=== PATIENT | male | born 1955 | race Caucasian/White ===

== ENCOUNTER 2018-05-21 15:41 | Emergency (ER) | payer BC ==
--- NOTE | 2018-05-21 16:29 | RAD ---
RADIOGRAPH CHEST 1 VIEW: HISTORY: A 62-year-old male with kidney failure and fluid volume overload. FINDINGS: There are no air space densities, pulmonary edema, pneumothorax, or cardiomegaly. The lateral costop hrenic angles are sharp. IMPRESSION: 1. No acute cardiopulmonary findings. 2. Left subclavian dual lead pacemaker. hubert [] POS: [facility]
[2018-05-21 16:49] LABS: #Eosinphils 0.2 thou/uL (0.0-0.7); #Lymphocytes 1.6 thou/uL (1.20-3.40); #Monocytes 0.5 thou/uL (0.11-0.59); #Neutrophils 8.9 thou/uL (1.40-6.50); %Basophils 0.3 % (0.0-1.0); %Eosinophils 1.6 % (0.0-10.0); %Lymphocytes 14.1 % (21.0-51.0); %Monocytes 4.6 % (0.0-10.0); %Neutrophils 79.4 % (42.0-75.0); Hemoglobin 13.6 g/dL (14.0-18.0); Mean Corpuscular HGB CONC 34.4 g/dL (32.0-36.0); Mean Corpuscular Hemoglobin 30.9 pg (27.0-31.0); Mean Platelet Volume 6.8 fL (7.4-10.4); Platelet Count 444 thou/uL (130-400); RBC Distribution Width 11.7 % (11.5-14.5); Red Blood Cell (RBC) Count 4.39 mill/uL (4.70-6.10); White Blood Cell (WBC) Count 11.2 thou/uL (4.8-10.8)
[2018-05-21 17:11] LABS: ALT (SGPT) 15 U/L (8-55); AST (SGOT) 15 U/L (5-34); Albumin 3.7 g/dL (3.5-5.0); Alkaline Phosphatase 190 U/L (40-150); Anion Gap 15 mmol/L (10-20); BUN (Urea Nitrogen) 22 mg/dL (8.4-25.7); Bilirubin, Total 0.2 mg/dL (0.2-1.2); CK (CPK) 160 U/L (30-200); Calc. Creatinine Clearance 0 mL/min (70-130); Calcium 9.4 mg/dL (7.8-10.44); Carbon Dioxide 25 mmol/L (22-29); Chloride 102 mmol/L (98-107); Estimated GFR-MDRD 40; Glucose 447 mg/dL (70-105); Lipase 72 U/L (8-78); Potassium 4.5 mmol/L (3.5-5.1); Protein, Total 6.7 g/dL (6.0-8.3); Sodium 137 mmol/L (136-145)
[2018-05-21 17:13] LABS: CKMB 2.5 ng/mL (0-6.6); Troponin I Less than 0.010 ng/mL (< 0.028)
[2018-05-21 17:47] LABS: Bilirubin Negative (Negative); Blood, Urine Negative (Negative); Clarity CLOUDY (Clear); Glucose, Urine (Dipstick) >=1000 mg/dL (Negative); Leukocyte Small (Negative); Nitrite Positive (Negative); Protein, Urine (Dipstick) Negative (Neg-Trace); Specific Gravity, Urine 1.028 (1.002-1.036); Urobilinogen 0.2 mg/dL (0.2-1.0); pH, Urine 6.5 (5.0-9.0)
[2018-05-21 17:48] LABS: Hyaline Casts/LPF 0-3 HYALINE CAST LPF (0-3 Hyaline); RBC/HPF 0-3 HPF (0-3); Squamous Epithelial None Seen HPF (0-3)
[2018-05-21 17:49] LABS: Yeast-AUWi Flag 266.6 (0-25.0)
[2018-05-21 17:58] LABS: Bacteria/HPF 3+ HPF (None Seen); Yeast-All Forms None Seen HPF (None Seen)
[2018-05-21] MEDS ORDERED: Ciprofloxacin 500 MG TAB ONE (18:29)
--- NOTE | 2018-05-21 19:18 | CT ---
CT ABDOMEN NONCONTRAST CT PELVIS NONCONTRAST: (urolithiasis protocol) DATE: 05/21/2018 HISTORY: A 62-year-old male with hematuria, generalized abdominal pain, and prostate cancer. COMPARISON: None. TECHNIQUE: IV injection of iodinated contrast media: none Oral contrast media: none FINDINGS: Other than for urolithiasis, the lack of IV and oral contrast limits the evaluation. There are bilateral L5 pars interarticularis defects without spondylolisthesis. There is fat strandi ng, representing edema, in the subcutaneous fat posterior to the dorsal lumbar fascia, at the level o f the lower lumbar spine and sacrum. There is an approximately 3.5 x 3.5 x 4.5 cm mass in the left r etroperitoneum, abutting the posterior surface of the left renal upper pole. It has a density of ha roximately 30 HU and is therefore not consistent with a simple cyst. It is surrounded by fat strandi ng and edema. It appears to be a pedunculated mass arising from the posterior cortical surface of th e left renal upper pole. There are a few tiny bilateral renal calculi, on the order of 1 mm in size each. No hydronephrosis bilaterally. There is edema throughout the left perirenal space. No hydron ephrosis. no ureteral calculus or bladder calculus. The prostate gland is enlarged, and it indents and superiorly displaces the bladder base. Diffuse mild mural thickening of the mildly distended uri nary bladder, suggestive of chronic bladder outlet obstruction. No colonic diverticulitis. No small bowel dilatation. No ascites or pneumoperitoneum. No pleural effusion. Within the limitations of the noncontrast scan, no major pathology identified involving the abdominal aorta, the bilateral adre nals, the right kidney, the pancreas, the liver, and the spleen. Normal appendix. The lung bases ar e clear. IMPRESSION: 1. A 4.5 cm mass at the left posterior upper perirenal space, probably arising from the left renal u pper pole cortex. Possibilities include renal cell carcinoma versus hemorrhagic renal cyst. 2. Edema throughout the entire left perirenal space. 3. Minimal bilateral nephrolithiasis, consisting of a few punctate bilateral renal calculi, on the o rder of 1 mm in size each. 4. No obstructive uropathy. 5. Enlarged prostate gland and associated signs of chronic bladder outlet obstruction. 6. Bilateral L5 spondylolysis without spondylolisthesis. 7. Recommend multiphase CT of the abdomen and pelvis with and without contrast (hematuria protocol) for complete evaluation of the hematuria and especially to further evaluate the left perirenal mass. IVAN Palm POS: [facility]
--- NOTE | 2018-05-27 21:00 | EKG ---
Test Reason : Blood Pressure : / mmHG Vent. Rate : 071 BPM Atrial Rate : 071 BPM P-R Int : 000 ms QRS Dur : 100 ms QT Int : 392 ms P-R-T Axes : 000 -08 038 degrees QTc Int : 425 ms Atrial-paced rhythm with prolonged AV conduction Abnormal ECG Confirmed by LONI SON, JOSE ([id number]), editorial assistant COLEMAN MONZON ([id number]) on 05/27/2018 8:59:27 PM Referred By: Confirmed By:JOSE IVEY MD
== END 2018-05-21 19:53 | disposition home or self-care (01) ==
LOC: ERS 15:41
DX: N39.0 Urinary tract infection, site not specified (principal); N28.89 Other specified disorders of kidney and ureter; E11.65 Type 2 diabetes mellitus with hyperglycemia; I25.10 Atherosclerotic heart disease of native coronary artery without angina pectoris; K21.9 Gastro-esophageal reflux disease without esophagitis; E78.5 Hyperlipidemia, unspecified; I10 Essential (primary) hypertension; Z85.46 Personal history of malignant neoplasm of prostate; Z79.82 Long term (current) use of aspirin; Z79.899 Other long term (current) drug therapy; Z79.4 Long term (current) use of insulin
CPT/HCPCS: 71045; 74176; 80053; 81003; 81015; 82010; 82550; 82553; 83690; 83880; 84484; 85025; 87077; 87086; 87186; 93005; 96360; 96361

== ENCOUNTER 2019-06-03 13:13 | Observation (INO) | payer BC ==
[2019-06-03 13:51] LABS: #Eosinphils 0.1 thou/uL (0.0-0.7); #Lymphocytes 1.8 thou/uL (1.20-3.40); #Monocytes 0.9 thou/uL (0.11-0.59); #Neutrophils 8.2 thou/uL (1.40-6.50); %Basophils 0.3 % (0.0-1.0); %Eosinophils 0.6 % (0.0-10.0); %Lymphocytes 16.3 % (21.0-51.0); %Neutrophils 74.8 % (42.0-75.0); Hemoglobin 14.5 g/dL (14.0-18.0); Mean Corpuscular HGB CONC 34.3 g/dL (32.0-36.0); Mean Corpuscular Hemoglobin 30.1 pg (27.0-31.0); Mean Corpuscular Volume 87.7 fL (78.0-98.0); Mean Platelet Volume 8.3 fL (7.4-10.4); Platelet Count 302 thou/uL (130-400); RBC Distribution Width 13.1 % (11.5-14.5); Red Blood Cell (RBC) Count 4.82 mill/uL (4.70-6.10)
--- NOTE | 2019-06-03 14:10 | RAD ---
PA AND LATERAL CHEST: HISTORY: Weakness. Chest pain. COMPARISON: 05/21/2018 FINDINGS: The heart size is normal. A left-sided pacing device remains in place. The lungs are well expanded without lobar consolidation, pneumothoraces, or pleural effusions. There are degenerative changes in the spine. IMPRESSION: No radiographic evidence of an acute cardiopulmonary process. POS: [facility]
[2019-06-03 14:13] LABS: ALT (SGPT) 12 U/L (8-55); AST (SGOT) 18 U/L (5-34); Albumin 4.2 g/dL (3.4-4.8); Alkaline Phosphatase 148 U/L (40-150); Anion Gap 15 mmol/L (10-20); BUN (Urea Nitrogen) 34 mg/dL (8.4-25.7); Bilirubin, Total 0.4 mg/dL (0.2-1.2); CK (CPK) 323 U/L (30-200); Calc. Creatinine Clearance 0 mL/min (70-130); Calcium 10.5 mg/dL (7.8-10.44); Carbon Dioxide 25 mmol/L (23-31); Chloride 99 mmol/L (98-107); Estimated GFR-MDRD 28; Globulin 2.9 g/dL (2.4-3.5); Glucose 155 mg/dL (80-115); Potassium 4.1 mmol/L (3.5-5.1); Protein, Total 7.1 g/dL (5.8-8.1); Sodium 135 mmol/L (136-145)
[2019-06-03] MEDS ORDERED: Aspirin Chewable 81 MG TAB ONE (14:56)
[2019-06-03 15:32] LABS: Bilirubin Negative (Negative); Blood, Urine Trace (Negative); Clarity Turbid (Clear); Glucose, Urine (Dipstick) Greater than 1000 mg/dL (Negative); Leukocyte 500 Leu/uL (Negative); Nitrite 2+ (Negative); Protein, Urine (Dipstick) Negative (Neg-Trace); RBC/HPF 0-3 HPF (0-3); Squamous Epithelial None Seen HPF (0-3); Urobilinogen Normal mg/dL (Less than 2); WBC/HPF Greater than 50 HPF (0-3)
[2019-06-03 15:43] LABS: Bacteria/HPF 2+ HPF (None Seen)
[2019-06-03] MEDS ORDERED: HumaLOG 300 UNITS/3 ML VIAL SC PRN (15:46)
[2019-06-03] MEDS ORDERED: Dextrose 50% Abboject 50 ML SYRINGE SLOW IVP PRN (15:46)
[2019-06-03] MEDS ORDERED: Dextrose 5% in Water 1,000 ML IV PRN (15:46)
[2019-06-03 17:01] LABS: Troponin I 0.012 ng/mL (< 0.028)
[2019-06-03 17:03] VITALS: BMI 35.7
[2019-06-03 20:01] LABS: Troponin I Less than 0.010 ng/mL (< 0.028)
[2019-06-03] MEDS: Heparin 5,000 UNITS/ML VIAL SC SCH (20:50)
[2019-06-03] MEDS ORDERED: Escitalopram Oxalate 20 mg Tablet PO SCH (21:15)
[2019-06-03] MEDS ORDERED: Pregabalin 75 MG CAP PO SCH (21:15)
[2019-06-03] MEDS ORDERED: traZODone HCl 50 MG TAB PO SCH (21:30)
--- NOTE | 2019-06-03 22:08 | HP ---
CHIEF COMPLAINT: Shortness of breath and chest pain. HISTORY OF PRESENT ILLNESS: The patient is a 63-year-old male with a past medical history of CAD, status post stent times x1 in 2013. He also has a history of diabetes, hypertension, prostate cancer, who presented to the hospital with chest pain. The patient states that for the past 3 or 4 days, he has been having worsening chest pressure, has been feeling very fatigued and also some shortness of breath on exertion. He also has complaints of orthopnea for the past 3 or 4 days. The patient denies any fevers or chills. He denies any diaphoresis. He states that normally he has much more energy, however, for the past few days, he has had no energy at all. PAST MEDICAL HISTORY: As of the followin. Diabetes. 2. He has a history of CAD. 3. He has a history of hypertension. 4. He has a history of prostate cancer. 5. He also has a history of CKD stage 2 to 3. 6. Obesity. 7. Obstructive sleep apnea, which he does not use the CPAP. PAST SURGICAL HISTORY: He has had cardiac ablation x3. He also had a pacemaker placement. He has ulnar nerve release. He has had a tonsillectomy, adenoidectomy, bilateral knee, shoulder repair, and cardiac stents. MEDICATIONS: As of the following: He is on; 1. Humulin R 12 units b.i.d. 2. Imdur 60 mg daily. 3. Losartan 100 mg daily. 4. Seroquel 50 mg b.i.d. 5. Lisinopril 10 mg daily. 6. Hydrochlorothiazide 25 mg one p.o. daily. 7. Protonix 40 mg daily. 8. Hydralazine 50 mg t.i.d. 9. Crestor 40 mg daily. ALLERGIES: HE IS ALLERGIC TO CECLOR. FAMILY HISTORY: He has a positive history had a history of diabetes. Sister also had lupus. Dad after complication of AL at the age of 54. Mother had AL at the age of 67. SOCIAL HISTORY: He denies any alcohol use, drug use, or smoking history. He is , lives with his family and is a full code. REVIEW OF SYSTEMS: All negative for the ones mentioned above in the HPI. PHYSICAL EXAMINATION: VITAL SIGNS: Are as of the following; temperature of 98.7, heart rate of 80, blood pressure of 130/60, 98% on room air. GENERAL: He is awake, alert, and oriented x3. Does not appear in any distress. HEENT: Normocephalic, atraumatic. No lymphadenopathy noted. Pupils are equal and reactive to light. CV: S1 and S2 present. No murmurs, rubs, or gallops. LUNGS: Clear to auscultation. No rhonchi or wheezes noted. ABDOMEN: Obese. Bowel sounds are present x2. EXTREMITIES: No edema. Pedal pulses are present x2. NEUROVASCULAR: No focal deficits noted. SKIN: No cuts, lesions, or bruises noted. LABORATORY RESULTS: As of the following; WBCs of 11.0, hemoglobin of 14.5, hematocrit of 42.3, platelets of 302. Chemistry; sodium of 135, potassium of 4.1, BUN of 34, creatinine of 2.41, calcium was 10.5. His CK was 323. His troponin x1 was negative. His BNP was 69. His chest x-ray did not show any acute abnormalities. ASSESSMENT AND PLAN: The patient is a 63-year-old male, who presents to the hospital with chest pain and shortness of breath. 1. Chest pain. This could be cardiac in etiology given his risk factors. We will trend the troponins x3. 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 I will order a stress test as his troponins are negative. Also, I will interrogate his pacemaker since he states that he at times feels some palpitations or feels that his heart is beating really fast. I will interrogate his pacemaker. I will get an echocardiogram since he was supposed to have an echocardiogram with his maintenance of way supervisor . 2. Diabetes. We will continue his home medications and check Accu-Cheks before meals and at bedtime. 3. Hypertension. We will continue his home medications. 4. Coronary artery disease. We will continue his aspirin and a statin. 5. Generalized body aches and pains. The patient has never seen a extract mixer. I will order an MARVA and I have asked the family to follow up with the results after he gets discharged. 6. Prostate cancer. The patient has not really seen an oncologist. He had a workup done and has been seeing a physician at [facility], however, the patient has not followed back up and I did advise strongly that the patient needs to follow up to keep a close eye on his prostate cancer. 7. Deep venous thrombosis prophylaxis. We will put the patient on SCDs. Job ID: [id number]
[2019-06-03] MEDS ORDERED: Atorvastatin Calcium 40 MG TAB PO SCH (22:30)
[2019-06-03] MEDS ORDERED: NIFEdipine XL 30 MG TAB PO SCH (22:30)
[2019-06-03] MEDS ORDERED: Clopidogrel Bisulfate 75 MG TAB PO SCH (22:30)
[2019-06-04] MEDS: HumaLOG 300 UNITS/3 ML VIAL SC PRN ×2 (06:29→12:18)
[2019-06-04] MEDS ORDERED: Diazepam 5 MG TAB PO PRN (07:16)
[2019-06-04] MEDS ORDERED: Insulin Glargine 15 UNITS in Pre-Filled Syringe 1 EACH SC SCH ×2 (07:30→21:00)
[2019-06-04] MEDS ORDERED: Hydrochlorothiazide 25 MG TAB PO SCH (09:00)
[2019-06-04] MEDS ORDERED: Pregabalin 75 MG CAP PO SCH (09:00)
[2019-06-04] MEDS ORDERED: Aspirin 325 mg Enteric Coated Tablet PO SCH (09:00)
[2019-06-04] MEDS ORDERED: ADENOSINE 60 MG/20 ML VIAL ONE (09:07)
[2019-06-04 11:54] LABS: Anion Gap 14 mmol/L (10-20); BUN (Urea Nitrogen) 34 mg/dL (8.4-25.7); Calc. Creatinine Clearance 50 mL/min (70-130); Calcium 10.3 mg/dL (7.8-10.44); Carbon Dioxide 27 mmol/L (23-31); Chloride 96 mmol/L (98-107); Estimated GFR-MDRD 24; Potassium 4.7 mmol/L (3.5-5.1); Sodium 132 mmol/L (136-145)
[2019-06-04 11:58] LABS: Glucose 676 mg/dL (80-115)
--- NOTE | 2019-06-04 12:09 | NM ---
CARDIAC SPECT: CLINICAL HISTORY: 63-year-old male with chest pain, coronary artery disease, GA, stent, ablation, hypertensin, diabetes , and dyslipidemia. TECHNIQUE: A myocardial perfusion scan was performed using the single isotope one day protocol with technetium-9 9m sestamibi. 11 mCi were injected intravenously for the rest exam followed by 32 mCi for the stress exam. Pharmacologic stress with Adenosine was monitored and interpreted by Luisa Chambers NP. FINDINGS: Homogeneous tracer distribution is seen in the myocardial segments on stress and rest images without fixed or reversible defects. GATED SPECT LVEF: 50%. WALL MOTION EXAM: Normal. IMPRESSION: Normal myocardial perfusion scan. POS: [facility]
[2019-06-04] MEDS: Heparin 5,000 UNITS/ML VIAL SC SCH ×3 (12:17→22:13)
[2019-06-04] MEDS: Isosorbide Mononitrate (ER) 30 MG TAB PO SCH (12:19)
[2019-06-04] MEDS: Pregabalin 50 MG CAP PO SCH (12:19)
[2019-06-04] MEDS: Aspirin 81 mg Enteric Coated Tablet PO SCH (12:19)
[2019-06-04] MEDS ORDERED: HumaLOG 300 UNITS/3 ML VIAL SC SCH (17:51)
[2019-06-04] MEDS ORDERED: Atorvastatin Calcium 40 MG TAB PO SCH (21:00)
[2019-06-04] MEDS ORDERED: NIFEdipine XL 30 MG TAB PO SCH (21:00)
[2019-06-04] MEDS ORDERED: Clopidogrel Bisulfate 75 MG TAB PO SCH (21:00)
[2019-06-04] MEDS ORDERED: Escitalopram Oxalate 20 mg Tablet PO SCH (21:00)
[2019-06-05 06:33] LABS: Anion Gap 14 mmol/L (10-20); BUN (Urea Nitrogen) 35 mg/dL (8.4-25.7); Calc. Creatinine Clearance 60 mL/min (70-130); Calcium 9.8 mg/dL (7.8-10.44); Carbon Dioxide 26 mmol/L (23-31); Chloride 97 mmol/L (98-107); Estimated GFR-MDRD 29; Glucose 229 mg/dL (80-115); Potassium 3.9 mmol/L (3.5-5.1); Sodium 133 mmol/L (136-145)
[2019-06-05] MEDS ORDERED: Insulin Glargine 15 UNITS in Pre-Filled Syringe 1 EACH SC SCH (09:00)
[2019-06-05] MEDS: Isosorbide Mononitrate (ER) 30 MG TAB PO SCH (10:39)
[2019-06-05] MEDS: Aspirin 81 mg Enteric Coated Tablet PO SCH (10:39)
[2019-06-05] MEDS: Heparin 5,000 UNITS/ML VIAL SC SCH (10:40)
[2019-06-05] MEDS: Pregabalin 50 MG CAP PO SCH (10:40)
[2019-06-05] MEDS: [UNRECOGNIZED DRUG - OTHER] SC SCH ×2 (10:42→13:35)
[2019-06-05] MEDS: HUMULIN R SC SCH ×2 (10:42→13:35)
--- NOTE | 2019-06-05 12:03 | MRI ---
MRI BRAIN WITHOUT CONTRAST: HISTORY: Weakness. FINDINGS: No restricted diffusion is seen. No evidence of infarct, hemorrhage, midline shift, or abnormal extr aaxial fluid collections are seen. The ventricular size is appropriate and the basilar cisterns stewart nt. The visualized paranasal sinuses and mastoid air cells are well aerated. IMPRESSION: No evidence of acute intracranial process. POS: [facility]
[2019-06-05 12:15] LABS: Hemoglobin A1c 13.3 % (4.0-6.0)
[2019-06-05 12:26] VITALS: BP 156/90; TEMP 98
--- NOTE | 2019-06-05 22:46 | EKG ---
Test Reason : Blood Pressure : / mmHG Vent. Rate : 069 BPM Atrial Rate : 069 BPM P-R Int : 000 ms QRS Dur : 102 ms QT Int : 410 ms P-R-T Axes : 000 005 059 degrees QTc Int : 439 ms Electronic atrial pacemaker Nonspecific ST abnormality Abnormal ECG When compared with ECG of 21-MAY-2018 16:22, No significant change was found Confirmed by Melonie BOWERS ([id number]) on 06/05/2019 10:45:48 PM Referred By: MELIDA Confirmed By:Melonie BOWERS
[2019-06-06 16:43] LABS: ANA Symphony (Qualitative) Negative (Negative); ANA Symphony (Quantitative) 0.1 Ratio (< 0.7 Negative); dsDNA IgG Antibody Less than 0.5 IU/mL (<10 Negative)
== END 2019-06-05 14:49 | disposition home or self-care (01) ==
LOC: ERS 13:13 → INTOOBSV 15:45 → 2SW 15:45
PROVIDERS: ADMIT Internal Medicine; ATTEND Internal Medicine
DX: R07.89 Other chest pain (principal); I25.10 Atherosclerotic heart disease of native coronary artery without angina pectoris; I13.0 Hypertensive heart and chronic kidney disease with heart failure and stage 1 through stage 4 chronic kidney disease, or unspecified chronic kidney disease; E11.22 Type 2 diabetes mellitus with diabetic chronic kidney disease; N18.2 Chronic kidney disease, stage 2 (mild); I50.9 Heart failure, unspecified; E66.9 Obesity, unspecified; M79.10 Myalgia, unspecified site; G47.33 Obstructive sleep apnea (adult) (pediatric); K21.9 Gastro-esophageal reflux disease without esophagitis; I25.2 Old myocardial infarction; E78.5 Hyperlipidemia, unspecified; Z68.36 Body mass index [BMI] 36.0-36.9, adult; Z85.46 Personal history of malignant neoplasm of prostate; Z79.4 Long term (current) use of insulin; Z79.899 Other long term (current) drug therapy; Z88.1 Allergy status to other antibiotic agents; Z88.8 Allergy status to other drugs, medicaments and biological substances; Z79.02 Long term (current) use of antithrombotics/antiplatelets; Z79.82 Long term (current) use of aspirin
CPT/HCPCS: 36415; 36416; 70551; 71046; 78452; 80048; 80053; 81003; 81015; 82550; 83036; 83880; 84484; 85025; 86038; 86225; 93005; 93010; 93017; 93306; 94660; 94760; A9500; G0378; J0153; J1644; J1815

== ENCOUNTER 2020-03-07 01:50 | Observation (INO) | payer BC ==
[2020-03-07 02:40] LABS: #Eosinphils 0.1 thou/uL (0.0-0.7); #Lymphocytes 1.1 thou/uL (1.20-3.40); #Monocytes 0.8 thou/uL (0.11-0.59); #Neutrophils 6.6 thou/uL (1.40-6.50); %Basophils 0.3 % (0.0-1.0); %Eosinophils 1.7 % (0.0-10.0); %Lymphocytes 12.6 % (21.0-51.0); %Neutrophils 76.4 % (42.0-75.0); Hemoglobin 13.5 g/dL (14.0-18.0); Mean Corpuscular HGB CONC 32.5 g/dL (32.0-36.0); Mean Corpuscular Hemoglobin 29.9 pg (27.0-31.0); Mean Corpuscular Volume 92.1 fL (78.0-98.0); Mean Platelet Volume 9.3 fL (7.4-10.4); Platelet Count 186 thou/uL (130-400); RBC Distribution Width 12.9 % (11.5-14.5); Red Blood Cell (RBC) Count 4.51 mill/uL (4.70-6.10); White Blood Cell (WBC) Count 8.7 thou/uL (4.8-10.8)
[2020-03-07] MEDS ORDERED: Lidocaine 2% 11 ML SYR TOP SCH (02:45)
[2020-03-07 02:46] LABS: INR-International Normal Ratio 0.9; PTT 25.2 SEC (22.9-36.1); Prothrombin Time 12.3 sec (12.0-14.7)
[2020-03-07 04:08] LABS: Albumin 3.8 g/dL (3.4-4.8)
[2020-03-07 04:09] LABS: Chloride 99 mmol/L (98-107); Sodium 135 mmol/L (136-145)
[2020-03-07 04:10] LABS: Glucose 392 mg/dL (80-115)
[2020-03-07 04:11] LABS: Globulin 2.3 g/dL (2.4-3.5); Protein, Total 6.1 g/dL (5.8-8.1)
[2020-03-07 04:12] LABS: Anion Gap 11 mmol/L (10-20); Bilirubin, Total 0.4 mg/dL (0.2-1.2); Carbon Dioxide 30 mmol/L (23-31)
[2020-03-07 04:13] LABS: Alkaline Phosphatase 215 U/L (40-110)
[2020-03-07 04:14] LABS: Calc. Creatinine Clearance 0 mL/min (70-130); Estimated GFR-MDRD 27
[2020-03-07 04:15] LABS: BUN (Urea Nitrogen) 26 mg/dL (8.4-25.7)
[2020-03-07 04:16] LABS: ALT (SGPT) 19 U/L (8-55); AST (SGOT) 18 U/L (5-34)
--- NOTE | 2020-03-07 05:33 | PDOC.FPRHP ---
- History of Present Illness Chief Complaint: hematuria History of Present Illness: Patient is a 64M with PMHx of prostate cancer, CAD, IDDM2, GERD, HLD, HTN, CKD, CHF, Hx of LA, overflow incontinence, hx of afib that presents with hematuria. Patient reports that he had an appointment with Dr. Mariscal 03/06 where he had an US to evaluate his bladder for overflow incontinence and his hx of intermittent hematuria throughout the last several years. After the US Dr. Bonilla performed a cystoscopy and placed a 2-way-slade catheter. As the procedure was impromptu, the patient did not stop taking his plavix before the procedure. He reports that since the procedure he has noted hematuria and clotting in his slade and decided to come in. Patient has a hx of prostate cancer diagnosed 2-3 years ago. He has had a prostate bx by Dr. Mariscal and the patient was then encouraged to go to [place], who then directed him to MD George for management of his prostate cancer. MD George reportedly wanted to do a more invasive procedure, but due to his co- morbidities they are watching/waiting. They also encouraged him to get a PET scan, but due to his CKD (followed by Dr. Monge), he has not had this done. The patient had his 2-way-slade removed and a 3-way-slade inserted in the ED. Per ED report, Dr. Bonilla was contacted and he encouraged the patient to be admitted, his plavix held, and he will see him today. PCP: [facility] ED Course: lidocaine (topical) + slade replacement - Allergies/Adverse Reactions Allergies Allergy/AdvReac Type Severity Reaction Status Date / Time cefaclor [From Ceclor] Allergy Unknown Verified 04/11/16 01:00 quetiapine Allergy Verified 06/03/19 17:25 - Home Medications Medication Instructions Recorded Confirmed Type Hydrochlorothiazide 12.5 mg PO DAILY 06/19/13 06/03/19 History Diazepam 10 mg PO BID PRN 09/06/13 06/03/19 History Acetaminophen With Codeine 1 - 2 tablet PO Q4HR PRN 06/03/19 06/03/19 History [Tylenol with Codeine #3] Aspirin [Ecotrin Low Strength] 81 mg PO DAILY 06/03/19 06/03/19 History Atorvastatin Calcium [Lipitor] 40 mg PO HS 06/03/19 06/03/19 History Clopidogrel Bisulfate [Clopidogrel] 75 mg PO HS 06/03/19 06/03/19 History Escitalopram Oxalate [Lexapro] 20 mg PO HS 06/03/19 06/03/19 History Glucagon 1 mg IM ONE PRN 06/03/19 06/03/19 History Isosorbide Mononitrate [Isosorbide 30 mg PO DAILY 06/03/19 06/03/19 History Mononitrate ER] NIFEdipine [Nifedipine ER] 15 mg PO HS 06/03/19 06/03/19 History Pregabalin [Lyrica] 100 mg PO DAILY 06/03/19 06/03/19 History Pregabalin [Lyrica] 300 mg PO HS 06/03/19 06/03/19 History Syringe,Insul U-500,Ndl,0.5ML 55 units SC TID-WM 06/03/19 06/03/19 History [Insulin Syringe U-500] hydrOXYzine [Atarax] 25 mg PO TID PRN 06/03/19 06/03/19 History traMADol HCl [Tramadol HCl] 1 - 2 tab PO Q6HR PRN 06/03/19 06/03/19 History traZODone HCl [Trazodone HCl] 200 mg PO HS 06/03/19 06/03/19 History - History PMHx: prostate cancer, CAD, IDDM2, GERD, HLD, HTN, CKD, CHF, Hx of LA, overflow incontinence, hx of atrial fibrillation PSHx: tonsillectomy, adenoidectomy, ulnar nerve sx, bilateral knee sx, bilateral shoulder sx, pacemaker and 1 stent placed (2012) after his LA, cardiac ablation (5-6x) for atrial fibrillation FHx: non-contributory Social: denies smoking hx, denies alcohol use, denies drug use - Review of Systems General: denies: fever/chills, weight/appetite/sleep changes Eyes: denies: eye pain, vision changes ENT: denies: nasal congestion, rhinorrhea Respiratory: denies: cough, congestion Cardiovascular: reports: edema (1+). denies: palpitation Gastrointestinal: denies: nausea, vomiting, abdominal pain Genitourinary: reports: incontinence (overflow), other (hematuria) Skin: denies: lesions, jaundice Musculoskeletal: denies: tenderness, stiffness Neurological: denies: syncope, seizure Psychological: denies: anxiety, depression - Vital signs BP: [166/74] HR: [62] RR: [15] Tmax: [98.6F] Pox: [96]% on [RA] Wt: [127kg] - Physical Exam Constitutional: NAD, awake, alert and oriented HEENT: normocephalic and atraumatic, MMM Neck: supple, FROM Chest: no-tender to palpation, no lesions Heart: RRR, no murmurs/rubs/gallops, other (trace bilateral lower extremity edema) Lungs: CTAB, no respiratory distress Abdomen: soft, non-tender, bowel sounds present, other (mild distention) Musculoskeletal: normal tone, ROM grossly normal Neurological: no focal deficit Skin: no rash/lesions, capillary refill <2 seconds Heme/Lymphatic: no purpura, other (levon blood from slade catheter) Psychiatric: normal mood and affect, good judgment and insight FMR H&P: Results - Labs Result Diagrams: 03/07/20 02:33 03/07/20 03:43 Lab results: WBC 8.7 thou/uL (4.8-10.8) 03/07/20 02:33 Hgb 13.5 g/dL (14.0-18.0) L 03/07/20 02:33 Hct 41.6 % (42.0-52.0) L 03/07/20 02:33 MCV 92.1 fL (78.0-98.0) 03/07/20 02:33 Plt Count 186 thou/uL (130-400) 03/07/20 02:33 Neutrophils % 76.4 % (42.0-75.0) H 03/07/20 02:33 Sodium 135 mmol/L (136-145) L 03/07/20 03:43 Potassium 5.0 mmol/L (3.5-5.1) 03/07/20 03:43 Chloride 99 mmol/L (98-107) 03/07/20 03:43 Carbon Dioxide 30 mmol/L (23-31) 03/07/20 03:43 BUN 26 mg/dL (8.4-25.7) H 03/07/20 03:43 Creatinine 2.47 mg/dL (0.7-1.3) H 03/07/20 03:43 Glucose 392 mg/dL (80-115) H 03/07/20 03:43 Calcium 9.0 mg/dL (7.8-10.44) 03/07/20 03:43 Total Bilirubin 0.4 mg/dL (0.2-1.2) 03/07/20 03:43 AST 18 U/L (5-34) 03/07/20 03:43 ALT 19 U/L (8-55) 03/07/20 03:43 Alkaline Phosphatase 215 U/L (40-110) H 03/07/20 03:43 Serum Total Protein 6.1 g/dL (5.8-8.1) 03/07/20 03:43 Albumin 3.8 g/dL (3.4-4.8) 03/07/20 03:43 FMR H&P: A/P - Problem List (1) Slade catheter problem Current Visit: Yes Status: Acute Code(s): T83.9XXA - UNSP COMPLICATION OF GENITOURINARY PROSTH DEV/GRFT, INIT (2) Hematuria Current Visit: Yes Status: Acute Code(s): R31.9 - HEMATURIA, UNSPECIFIED (3) Prostate cancer Current Visit: Yes Status: Acute Code(s): C61 - MALIGNANT NEOPLASM OF PROSTATE (4) HTN (hypertension) Current Visit: Yes Status: Acute Code(s): I10 - ESSENTIAL (PRIMARY) HYPERTENSION (5) HLD (hyperlipidemia) Current Visit: Yes Status: Acute Code(s): E78.5 - HYPERLIPIDEMIA, UNSPECIFIED (6) GERD (gastroesophageal reflux disease) Current Visit: Yes Status: Acute Code(s): K21.9 - GASTRO-ESOPHAGEAL REFLUX DISEASE WITHOUT ESOPHAGITIS (7) CKD (chronic kidney disease) Current Visit: Yes Status: Acute Code(s): N18.9 - CHRONIC KIDNEY DISEASE, UNSPECIFIED (8) CHF (congestive heart failure) Current Visit: Yes Status: Acute Code(s): I50.9 - HEART FAILURE, UNSPECIFIED (9) CAD (coronary artery disease) Current Visit: Yes Status: Acute Code(s): I25.10 - ATHSCL HEART DISEASE OF [place] CORONARY ARTERY W/O ANG PCTRS (10) Insulin dependent diabetes mellitus Current Visit: Yes Status: Acute Code(s): GSI9958 - (11) Overflow incontinence Current Visit: Yes Status: Acute Code(s): N39.490 - OVERFLOW INCONTINENCE - Plan Patient is a 64M with PMHx of prostate cancer, CAD, IDDM2, GERD, HLD, HTN, CKD, CHF, Hx of LA, hx of afib, overflow incontinence that is admitted for: #Hematuria 2/2 procedure, slade catheter clotting #Overflow incontinence -3-way-slade catheter in place from the ED -will continue slade flushes -Dr. Mariscal consulted from the ED, appreciate recs -H/H stable at this time -will hold plavix at this time #Hx of prostate cancer -has had prostate bx -under care of MD George -alk phos elevated at 215, concern for possible bone mets -patient not advised to have PET due to CKD, not advised to have procedure (TURP ?) due to co-morbidities -can consider bone scan #IDDM2 -ISS -ACHS accuchecks -continue home meds #HTN -continue home meds #HLD -continue home meds #CKD stage 4 -stable -renally does medications #CHF -uncertain type -echo 05/2019: EF 55-60% -continue home meds -does not appear fluid overloaded on exam #Hx of LA #CAD -will hold plavix for procedure #GERD -continue home meds Diet: NPO for possible procedure DVTppx: SCDs due to hematuria Dispo: medical obs for post-op hematuria and slade-catheter complications; Dr. Mariscal consulted, appreciate recs Code: Full PCP: [facility] FMR H&P: Upper Level - Pertinent history 64 year old male presents with post-procedure hematuria. He was seen by Dr. Mariscal and had a voiding trial done for urinary urgency and bladder distention/ overflow. That same morning, he had a cystoscopy done and subsequently had a slade catheter placed. As the procedure was unplanned, he did not stop his plavix prior to the visit and almost immediately after placement of slade catheter had bleeding and clotting. He states that throughout the day, the clotting of slade catheter became more problematic and urine was backing up. He also endorses some dizziness. In ED, new slade catheter was placed and attempts were made at flushing without much success. Dr. Mariscal was called and asked that patient be admitted with orders to hold ASA and plavix. - Pertinent findings General: Alert and oriented x3. No acute distress. HEENT: MMM. Card: RRR, no murmur Resp: CTA bilaterally, no acute respiratory distress Abdom: Mildly distended, soft, bowel sounds present, non-tender Ext: Trace bilateral lower extremity edema, palpable pulses - Plan Date/Time: 03/07/20525 I, Nichole Del Toro, have evaluated this patient and agree with findings/plan as outlined by internet sales associate resident. Pertinent changes/additions are listed here. Post-procedure hematuria - Patient s/p slade catheter placement after cystoscopy - Patient did not stop plavix due to impromptu nature of procedure - Dr. Mariscal consulted from ED; recommended admission and will follow up this AM - Hold plavix and ASA Hx of prostate cancer - Has had prostate bx - Has been seen by MD George, but no surgical procedures have been performed due to comorbidities - Alk phos elevated at 215, concern for possible bone mets, recommend possible bone scan during admission as this will not affect his kidney function - Patient not advised to have PET due to CKD, not advised to have procedure ( TURP?) due to co-morbidities - Can consider bone scan IDDM2 - ISS - ACHS accuchecks - Continue home meds HTN - Continue home meds HLD - Continue home meds CKD stage 4 - Stable - Renally does medications CHF - Uncertain type - Echo 05/2019: EF 55-60% - Continue home meds - Does not appear fluid overloaded on exam CAD w/ history of LA - Will hold plavix and ASA due to bleeding GERD - Continue home meds Diet: NPO for possible procedure DVT ppx: SCDs Code status: Full Dispo: Obs on medical unit. Anticipate LOS <48 hours.
[2020-03-07] MEDS ORDERED: HumaLOG 300 UNITS/3 ML VIAL SC PRN (06:15)
[2020-03-07] MEDS ORDERED: Dextrose 5% in Water 1,000 ML IV PRN (06:15)
[2020-03-07] MEDS ORDERED: Insulin Regular 300 UNITS/3 ML VIAL SC PRN (06:15)
[2020-03-07] MEDS ORDERED: Dextrose 50% Abboject 50 ML SYRINGE SLOW IVP PRN (06:15)
[2020-03-07] MEDS ORDERED: Ondansetron ODT 4 MG TAB PO PRN (06:15)
--- NOTE | 2020-03-07 06:21 | CON ---
DATE OF CONSULTATION: 03/07/2020 HISTORY OF PRESENT ILLNESS: This is a 64-year-old white male I saw yesterday in my office. I have seen him for the second time in the last couple of weeks. I had seen him previously for an elevated PSA and he had a prostate biopsy and ultrasound done. In 2017, he had one area of a [place] 3 + 3, 20% of one core and he has been on active surveillance, although basically he has just not been seen by a urologist since that time. His PSA was between 9 and 10 and the last PSA as 2018 was I think around 9 also. His digital rectal exam reveals very enlarged prostate and his prostate was well over 100 g at the time of his biopsy. I repeated a PSA on him through my office that is still pending. I saw him because he told me he had urinated some blood occasionally in the past. We did office cysto on him yesterday and office cysto showed that his bladder was distended at least a L of urine in the bladder. There was no evidence of bladder cancer. There is a very large prostate with some intravesical growth. His creatinine has been mildly elevated. He sees Dr. Monge and was thought to be due to his hypertension, vascular disease, and diabetes. There may also be somewhat due to a bladder outlet obstruction. He is a large gentleman. 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 His creatinine here is currently 2.4. I think this is probably around where he often runs, although it may be up a little bit. He does have the PSA which is pending. He does have an alkaline phosphatase that is elevated, not sure the significance of that. We will see what his PSA is as it returns from my office as that PSA was done without a catheter in. His hemoglobin currently is 13.5. His platelet count is 186, and his coags were normal. I did place a Collins catheter, an 18-Sinhala today. He did have some hematuria and has persisted through the day. His called me a little after midnight stating the urine was very, very bloody. She did not think it was draining well that is why the ER. The nurses placed a 24-Sinhala blue 3-way catheter and hand irrigated clots and put him on CBI. When I called to check on him, the nurses said his urine was clear and that they are going to keep him off the CBI and see how he did. I came in to see him around 5 this morning and the urine was still bloody and irrigated out more clots and we will continue on bladder irrigation. He will need to be admitted by the hospitalist service. I think I have irrigated him free of clots. His urine is still pink tinged, so his bladder is still oozing from being decompressed or he is having just some prostatic bleeding. Because of his vascular disease, he does take Plavix. His abdomen is obese, but nontender. The penis is circumcised. No lesion. Testicles are descended without mass or tenderness. I did not repeat a rectal exam. He did not have any significant lower extremity edema. His urine is now very light pink on [id number] CBI rate. At this point, we will need to have the catheter left in for probably 7 to 10 days and we will do a cystometrogram in the office. This has already been set up. He would need to be in the hospital until his urine clears. I would think that this would clear up relatively quickly for him. There is a decent chance he is going to need a TURP of the prostate done. He is not a candidate for radical prostatectomy because of his health issues. He was already seen in [place] to consider that, but they did not think he was a good candidate at all, so probably if he was going to be treated, it would be with radiation, but he may stay on active surveillance, but clearly if his bladder works on a cystometrogram, he probably will need a TUR of the prostate, so that he can start to urinate normally. For this to be done, he will probably need to be off the Plavix and with the bleeding that he is having, it would be nice if he could be off the Plavix, so if we could get Dr. Lyons to see him while he is in the hospital to give his thoughts on what to do about taking him off his Plavix and whether that was felt to be safe and also to get his input in terms of could he tolerate an hour and a half of an anesthetic for TURP in the next 2 to 3 weeks. I do not think he has a urinary tract infection. The culture through the office was negative. I placed him on some Macrobid 100 p.o. a day. This Collins catheter was in to try to keep his urine clear in preparation for the cystometrogram. As mentioned, his hemoglobin actually looks fine, so I really do not think he has had significant loss of blood. His hemoglobin is 13.5. Hopefully, his urine will clear in the next 24 to 36 hours and leave the catheter in until a cystometrogram. Job ID: [id number]
[2020-03-07] MEDS ORDERED: Diazepam 5 MG TAB PO PRN (06:46)
[2020-03-07] MEDS ORDERED: hydrOXYzine 25 MG TAB PO PRN (06:46)
[2020-03-07] MEDS ORDERED: Acetaminophen/Codeine 30-300mg Tablet PO PRN (06:46)
[2020-03-07] MEDS ORDERED: traMADol HCl 50 MG TAB PO PRN (06:54)
[2020-03-07] MEDS ORDERED: cloNIDine 0.1 MG TAB PO PRN (06:54)
[2020-03-07] MEDS ORDERED: Nitroglycerin 4.9 GM Bottle SL PRN (06:54)
--- NOTE | 2020-03-07 07:04 | PDOC.FM ---
- Subjective Subjective: NAEO. Hematuria improved this AM with CBI. Patient has no complaints. - Objective MAR Reviewed: Yes Vital Signs & Weight: Vital Signs (12 hours) Temp Pulse Resp BP Pulse Ox 03/07/20 06:15 98.2 F 60 18 184/83 H 96 I&O: 03/06/20 03/07/20 03/08/20 06:59 06:59 06:59 Output Total 1700 Balance -1700 Result Diagrams: 03/07/20 02:33 03/07/20 03:43 Phys Exam - Physical Examination Constitutional: NAD HEENT: moist MMs Neck: supple, full ROM Respiratory: no wheezing, no rales, no rhonchi, clear to auscultation bilateral Cardiovascular: RRR, no significant murmur Gastrointestinal: soft obese Neurological: non-focal, moves all 4 limbs Psychiatric: normal affect, A&O x 3 Skin: no rash, normal turgor Dx/Plan (1) Hematuria Code(s): R31.9 - HEMATURIA, UNSPECIFIED Status: Acute (2) Slade catheter problem Code(s): T83.9XXA - UNSP COMPLICATION OF GENITOURINARY PROSTH DEV/GRFT, INIT Status: Acute (3) Prostate cancer Code(s): C61 - MALIGNANT NEOPLASM OF PROSTATE Status: Chronic (4) Anxiety Code(s): F41.9 - ANXIETY DISORDER, UNSPECIFIED Status: Chronic (5) Chronic pain Code(s): G89.29 - OTHER CHRONIC PAIN Status: Chronic (6) CAD (coronary artery disease) Code(s): I25.10 - ATHSCL HEART DISEASE OF [place] CORONARY ARTERY W/O ANG PCTRS Status: Chronic (7) CHF (congestive heart failure) Code(s): I50.9 - HEART FAILURE, UNSPECIFIED Status: Chronic (8) CKD (chronic kidney disease) Code(s): N18.9 - CHRONIC KIDNEY DISEASE, UNSPECIFIED Status: Chronic Qualifiers: Chronic kidney disease stage: stage 4 (severe) Qualified Code(s): N18.4 - Chronic kidney disease, stage 4 (severe) (9) GERD (gastroesophageal reflux disease) Code(s): K21.9 - GASTRO-ESOPHAGEAL REFLUX DISEASE WITHOUT ESOPHAGITIS Status: Chronic (10) HLD (hyperlipidemia) Code(s): E78.5 - HYPERLIPIDEMIA, UNSPECIFIED Status: Chronic (11) HTN (hypertension) Code(s): I10 - ESSENTIAL (PRIMARY) HYPERTENSION Status: Chronic Qualifiers: Hypertension type: essential hypertension Qualified Code(s): I10 - Essential (primary) hypertension (12) Insulin dependent diabetes mellitus Code(s): CYE8794 - Status: Chronic (13) Overflow incontinence Code(s): N39.490 - OVERFLOW INCONTINENCE Status: Chronic - Plan Plan: Patient is a 64M with PMHx of prostate cancer, CAD, IDDM2, HLD, HTN, CKD, CHF, Hx of [place], hx of afib, overflow incontinence that is admitted for: #Hematuria 2/2 procedure, slade catheter clotting #Overflow incontinence -3-way-slade catheter in place from the ED -will continue slade flushes -Dr. Mariscal consulted from the ED, appreciate recs -H/H stable at this time -will hold plavix at this time #Hx of prostate cancer -has had prostate bx -under care of MD George -alk phos elevated at 215, concern for possible bone mets -patient not advised to have PET due to CKD, not advised to have procedure TURP due to comorbidities -can consider bone scan #IDDM2 -Resume home meal SSI with severe SSI while inpatient. -ACHS accuchecks & hypoglycemia protocol -A1c 10.8. Per was 14 so improved. Will start long-acting insulin regimen today. #HTN -continue home meds #HLD -continue home meds #CKD stage 4 -stable -renally does medications #HFpEF, not in acute exacerbation -echo 05/2019: EF 55-60% -continue home meds -QD weights, strict I&Os & 2L fluid restrictions #Hx of [place] 2/2 CAD -will hold ASA & plavix for procedure & 2/2 hematuria -Per patient last cardiac stress test was ~3 months ago & was WNLs. #Hx afib -holding plavix & ASA, s/p ablation so not on rate controlling meds #overflow incontinence -Per Urology's note most likely 2/2 BPH, slade in place currently. Strict I&Os while inpatient. Diet: CC, HH, Low Na, 2L fluid restriction VTE PPX: SCDs due to hematuria GI PPX: None Dispo: Will continue monitoring for resolution of hematuria on medical floor & consult Dr. Lyons for cardiac clearance for future OP procedure per patient's Urologist, Dr. Mariscal. Code: Full PCP: [facility] Addendum - Attending - Attending Attestation Date/Time: 03/07/20 1033 I personally evaluated the patient and discussed the management with Dr. Lanza I agree with the History, Examination, Assessment and Plan documented above with any addition or exceptions noted below. Patient admitted for evaluation of hematuria. Currently with 3 way catheter, filling with blood when irrigation is held. Dr Lyons stopped by this AM, ok to hold anticoagulation, Cardiology and Urology will conference on surgery timing for TURP. Elevated ALP, will consider bone scan pending renal function, will reach out to MD George.
[2020-03-07 07:32] LABS: Hemoglobin A1c 10.8 % (4.0-6.0)
[2020-03-07 07:49] VITALS: BMI 39.2
[2020-03-07] MEDS ORDERED: Insulin Glargine 25 UNITS in Pre-Filled Syringe 1 EACH SC SCH (09:00)
[2020-03-07] MEDS ORDERED: Pregabalin 50 MG CAP PO SCH ×2 (09:00→21:00)
[2020-03-07] MEDS ORDERED: Furosemide 40 MG/4 ML VIAL SLOW IVP SCH (09:00)
[2020-03-07] MEDS ORDERED: Lisinopril 20 MG TAB PO SCH (09:00)
[2020-03-07] MEDS ORDERED: hydrALAZINE 10 MG TAB PO SCH (09:00)
[2020-03-07] MEDS ORDERED: Insulin Regular 300 UNITS/3 ML VIAL SC SCH (09:00)
--- NOTE | 2020-03-07 09:31 | CON ---
DATE OF CONSULTATION: 03/07/2020 REASON FOR CONSULTATION: Preoperative evaluation. HISTORY OF PRESENT ILLNESS: Mr. Daniel Jain is a pleasant 64-year-old gentleman with history of coronary artery disease and history of prostate cancer with urinary retention, admitted to the hospital with gross hematuria. Mr. Jain has been having difficulty with urinary retention and underwent cystoscopy. Later, he developed severe gross hematuria. He had a catheter placed again and he is being flushed with fluid. The bleeding is markedly improved. The cystoscopy was done yesterday. The patient has a previous coronary artery disease history. He did undergo stent implantation of the left anterior descending artery in 2012. He had recurrent chest pain in 2013 and underwent a catheterization showed no significant restenosis. He has had chest pain off and on ever since. He did undergo stress testing earlier this year showing an ejection fraction low range of normal, but no ischemia, mildly dilated left ventricle. Echocardiogram also showed ejection fraction in the low range of normal. MEDICINES: He is taking; 1. Aspirin and Plavix, he took both of those yesterday. 2. Lisinopril 20 mg a day. 3. Isosorbide. 4. Hydralazine. 5. Atorvastatin 40 mg a day. 6. Tramadol. 7. Aspirin 81 mg a day. 8. Plavix 75 mg a day. 9. Lasix 20 mg a day. ALLERGIES: ALLERGY TO CEFACLOR. REVIEW OF SYSTEMS: CONSTITUTIONAL: No significant weight gain or loss. VISION: No changes. HEARING: No changes. PULMONARY: No cough or wheezing. CARDIAC: Occasional chest pain. GASTROINTESTINAL: No nausea, vomiting, or diarrhea. SKIN: No rashes. NEUROLOGIC: No unilateral weakness or numbness. PSYCHIATRIC: No unusual depression or anxiety. EXTREMITIES: Does have edema intermittently. FAMILY HISTORY: Noncontributory. PAST MEDICAL HISTORY: As mentioned, he does have prostate cancer. PHYSICAL EXAMINATION: GENERAL: This is a pleasant gentleman. VITAL SIGNS: A 6 feet 2 inches tall and 305 pounds. His blood pressure 170/77 and pulse 59. HEENT: Eyes, sclerae nonicteric. Mouth, mucous membranes moist. NECK: Supple. No lymphadenopathy. LUNGS: Clear. CARDIAC: Normal S1 and normal S2. There is no murmur, rub, or gallop. ABDOMEN: Soft and nontender. EXTREMITIES: No clubbing or cyanosis. Warm and dry. Extremities with moderate edema. LABORATORY DATA: I do not see an EKG though ordered an EKG. ASSESSMENT: 1. Coronary artery disease, stable. 2. Prostate cancer. 3. Urinary retention. 4. Hematuria. PLAN: 1. Hold aspirin and Plavix. 2. Since he is edematous, we will give him a dose of intravenous Lasix. 3. We will talk with Dr. Mariscal about timing for surgery. Obviously, it is a balance of risk about how long they leave him off the antiplatelet drugs, certainly for now or would have to hold these. We will talk with Dr. Mariscal about this. The patient is a candidate to proceed to surgery as is being planned. He had a nonischemic stress test earlier this year. Job ID: [id number]
[2020-03-07] MEDS: Insulin Regular 300 UNITS/3 ML VIAL SC SCH ×2 (11:38→16:32)
[2020-03-07] MEDS: HumaLOG 300 UNITS/3 ML VIAL SC PRN ×2 (14:03→16:33)
--- NOTE | 2020-03-07 14:15 | PRG ---
DATE OF SERVICE: 03/07/2020 Urine looks much better this afternoon. I have stopped the CBI. I have asked the nurses to plug the port, but keep to set up in the room as his urine remains clear. With him up and around, taking. A shower this afternoon, then he could go home tonight or in the morning from my standpoint. I have contacted Dr. Lyons. He will stay off his Plavix from this point on. He may take his aspirin and will stop that a week before surgery. Right now, his surgery is tentatively scheduled for the 24 of March to be a TURP. We will see him in the office well before, then to do a cystometrogram to be sure his bladder is functioning. His PSA from 2 days ago was 8.3. This would make it very unlikely that he has metastatic prostate cancer. His diagnosis of prostate cancer 3 years ago revealed a [place] 3 + 3, which is a low-grade tumor and it was only in one core in one area and only 20% of that one core was involved. He is probably safe to stay on active surveillance currently for this cancer. I do not know why his alkaline phosphatase is elevated. If this needs to be worked up by the Medical Team, then I would leave that up to their desire. Again, I would think to be unlikely related to metastatic prostate cancer. He will need to go home with his Collins catheter in. It is a large catheter in, but I will be seeing him in the next week and we will change it to a smaller catheter after we do a cystometrogram. So for going home, he already has an antibiotic at home to take. He is taking it just prophylactically while the catheter is in. He can stay on his aspirin until I see him in the office. He should stay off his Plavix between now and the time of his surgery. Job ID: [id number]
[2020-03-07 15:57] VITALS: BP 150/82; TEMP 98
[2020-03-07 16:34] LABS: Hemoglobin 13.9 g/dL (14.0-18.0); Mean Corpuscular HGB CONC 33.2 g/dL (32.0-36.0); Mean Corpuscular Hemoglobin 30.4 pg (27.0-31.0); Mean Corpuscular Volume 91.7 fL (78.0-98.0); Mean Platelet Volume 9.2 fL (7.4-10.4); Platelet Count 200 thou/uL (130-400); RBC Distribution Width 12.9 % (11.5-14.5); Red Blood Cell (RBC) Count 4.57 mill/uL (4.70-6.10)
[2020-03-07] MEDS ORDERED: Atorvastatin Calcium 40 MG TAB PO SCH (21:00)
[2020-03-07] MEDS ORDERED: Escitalopram Oxalate 20 mg Tablet PO SCH (21:00)
[2020-03-07] MEDS ORDERED: traZODone HCl 50 MG TAB PO SCH (21:00)
[2020-03-07] MEDS ORDERED: PREGABALIN 400 MG PO SCH (21:00)
[2020-03-07] MEDS ORDERED: Non-Formulary Item 1 EACH (Trazodone Hcl [Trazodone Hcl] 50 MG) PO SCH (21:00)
[2020-03-08] MEDS ORDERED: Furosemide 40 MG TAB PO SCH (07:30)
[2020-03-08] MEDS ORDERED: Insulin Glargine 35 UNITS in Pre-Filled Syringe 1 EACH SC SCH (09:00)
--- NOTE | 2020-03-09 07:44 | DIS ---
DATE OF ADMISSION: 03/07/2020 DATE OF DISCHARGE: 03/07/2020 RESIDENT: Ashley Lanza MD ADMITTING ATTENDING: Tevin Chin MD. DISCHARGING ATTENDING: Tevin Chin MD. CONSULTANTS: 1. José Mariscal MD, Urology. 2. Sai Lyons MD, Cardiology. PROCEDURES: None. PRIMARY DIAGNOSES: 1. Hematuria status post cystoscopy. 2. Insulin-dependent hyperglycemia secondary to insulin-dependent type 2 diabetes. SECONDARY DIAGNOSES: 1. Prostate cancer. 2. Coronary artery disease, status post stent placement. 3. Gastroesophageal reflux disease. 4. Hyperlipidemia. 5. Hypertension. 6. Chronic kidney disease, stage 4. 7. Congestive heart failure. 8. History of myocardial infarction. 9. Overflow incontinence. 10. History of atrial fibrillation. DISCHARGE MEDICATIONS: 1. Diazepam 10 mg p.o. b.i.d. as needed. 2. Aspirin 81 mg p.o. daily. 3. Lexapro 20 mg p.o. at bedtime. 4. Tylenol with codeine No. 3 one to two tablets p.o. q.4 hours as needed. 5. Tramadol 50 mg tablets 1-2 tabs p.o. q.6 hours as needed. 6. Lyrica 300 mg p.o. at bedtime. 7. Glucagon 30 mL vial 1 mg IM as needed for hypoglycemia. 8. Atorvastatin 40 mg p.o. daily. 9. Isosorbide mononitrate 60 mg tab extended release 30 mg p.o. daily. 10. Insulin U-500, 55 units subcu t.i.d. with meals. 11. Pregabalin or Lyrica 100 mg p.o. daily. 12. Trazodone 100 mg p.o. at bedtime. 13. Hydroxyzine 25 mg p.o. t.i.d. as needed. 14. Precose 25 mg p.o. t.i.d. with meals. 15. Clonidine 0.1 mg p.o. q.i.d. as needed. 16. Lantus 30 units subcu q.a.m. 17. Lisinopril 20 mg p.o. daily. DISCONTINUED MEDICATIONS: Clopidogrel 75 mg p.o. daily. HOSPITAL COURSE: The patient is a 64-year-old gentleman with past medical history notable for prostate cancer, insulin-dependent type 2 diabetes mellitus and overflow incontinence, who presented to the emergency department per the recommendations of his urologist, Dr. José Mariscal, after experiencing severe gross hematuria at home following a procedure done earlier that day. Per Dr. Mariscal, the patient follows with him due to his history of prostate cancer and overflow incontinence and was seen in his office on 03/06 where he had an ultrasound to evaluate his bladder for overflow incontinence and intermittent hematuria over the last several years. After the ultrasound noted significant urinary retention, an in office cystoscopy was performed in order to drain the bladder and assess for any bladder masses and a 2-way Collins catheter was placed following the procedure. After going home following the procedure, the patient reported that he had gross hematuria and clotting in the Collins causing him great discomfort and not allowing the Collins to drain properly , so he called Dr. Mariscal who recommended he report to the emergency department for further evaluation. On presentation to the emergency department, the patient was slightly hypertensive and tachycardic, with normal laboratories other than hyperglycemia with a BG of of 392. Dr. Mariscal came and evaluated the patient shortly after arrival and he was admitted to the medical floor for continued bladder irrigation and monitoring for resolution of his hematuria. His aspirin and Plavix were held in the setting of acute bleeding & per Dr. Mariscal's recs, the patient's Cardiology, Dr. Sai Lyons, was consulted for recs regarding whether is not his plavix could be help even once his hematuria resolved to allow the patient to undergo a TURP procedure for his incontinence as he was not a candidate for a radical prostatectomy given his multiple comorbidities. Dr. Lyons reported that his plavix could be held until he underwent a TURP but ASA should be resumed. Over the course of the day his hematuria lessened & on evaluation by Dr. Mariscal later that afternoon, the patient's urine was noted to be clear. His CBI was discontinued and the patient was monitored for several more hours during which time he did have blood tinged urine, but no gross clotting as reported earlier in the day. He was therefore cleared for discharge that evening per the recs of Dr. Mariscal's colleague, Dr. Cuevas. Regarding his hyperglycemia, the patient was discharged on 30U of lantus QAM in addition to his sliding scale insulin as his A1c was just over 10. 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 DISPOSITION: Stable DISCHARGE INSTRUCTIONS: 1. Home 2. HH, CC, Low Na 3. Activity as tolerated with no heavy lifting or straining. 4. Urology, Dr. Mariscal, and his PCP within 1 week of discharge. Job ID: [id number] MTDD
== END 2020-03-07 19:01 | disposition home or self-care (01) ==
LOC: ERS 01:50 → T4-A 04:54
PROVIDERS: ADMIT Family Medicine; ATTEND Family Medicine
DX: T83.86XA Thrombosis due to genitourinary prosthetic devices, implants and grafts, initial encounter (principal); E11.65 Type 2 diabetes mellitus with hyperglycemia; N39.490 Overflow incontinence; C61 Malignant neoplasm of prostate; I13.0 Hypertensive heart and chronic kidney disease with heart failure and stage 1 through stage 4 chronic kidney disease, or unspecified chronic kidney disease; E11.22 Type 2 diabetes mellitus with diabetic chronic kidney disease; N18.4 Chronic kidney disease, stage 4 (severe); I50.30 Unspecified diastolic (congestive) heart failure; R33.9 Retention of urine, unspecified; I25.10 Atherosclerotic heart disease of native coronary artery without angina pectoris; K21.9 Gastro-esophageal reflux disease without esophagitis; E78.5 Hyperlipidemia, unspecified; I25.2 Old myocardial infarction; I48.91 Unspecified atrial fibrillation; F41.9 Anxiety disorder, unspecified; G89.29 Other chronic pain; Z79.02 Long term (current) use of antithrombotics/antiplatelets; Z79.4 Long term (current) use of insulin; Z79.82 Long term (current) use of aspirin; Z79.899 Other long term (current) drug therapy; Z88.1 Allergy status to other antibiotic agents; Z88.8 Allergy status to other drugs, medicaments and biological substances
CPT/HCPCS: 36415; 36416; 80053; 83036; 85025; 85610; 85730; 93005; 96374; G0378; J1815; J1940

== ENCOUNTER 2020-03-20 06:35 | Outpatient (CLI) | payer MEDICARE, BC, OTHER ==
[2020-03-20 14:31] LABS: Hemoglobin 13.7 g/dL (14.0-18.0); Mean Corpuscular Hemoglobin 30.5 pg (27.0-31.0); Mean Corpuscular Volume 89.6 fL (78.0-98.0); Mean Platelet Volume 9.1 fL (7.4-10.4); Platelet Count 256 thou/uL (130-400); RBC Distribution Width 13.5 % (11.5-14.5); Red Blood Cell (RBC) Count 4.48 mill/uL (4.70-6.10); White Blood Cell (WBC) Count 8.7 thou/uL (4.8-10.8)
[2020-03-20 14:39] LABS: PTT 26.9 sec (22.9-36.1)
[2020-03-20 14:45] LABS: INR-International Normal Ratio 0.9; Prothrombin Time 12.3 sec (12.0-14.7)
[2020-03-20 14:52] LABS: Anion Gap 13 mmol/L (10-20); BUN (Urea Nitrogen) 30 mg/dL (8.4-25.7); Calc. Creatinine Clearance 0 mL/min (70-130); Calcium 9.6 mg/dL (7.8-10.44); Carbon Dioxide 26 mmol/L (23-31); Chloride 105 mmol/L (98-107); Estimated GFR-MDRD 31; Glucose 125 mg/dL (80-115); Potassium 4.7 mmol/L (3.5-5.1); Sodium 139 mmol/L (136-145)
[2020-03-21 11:17] LABS: SARS-CoV-2 MS2 Positive; SARS-CoV-2 N Gene Negative; SARS-CoV-2 S Gene Negative; SARS-CoV-2 orf1ab Negative
== END 2020-03-20 06:36 | disposition home or self-care (01) ==
LOC: LABBT 06:35
PROVIDERS: ATTEND Urology
DX: Z01.818 Encounter for other preprocedural examination (principal); Z11.59 Encounter for screening for other viral diseases; R33.9 Retention of urine, unspecified
CPT/HCPCS: 80048; 85027; 85610; 85730; 93005; U0003; 87635; 93010

== ENCOUNTER 2020-03-24 10:08 | Inpatient (IN) | payer MEDICARE, BC, OTHER ==
[2020-03-20 11:52] VITALS: BMI 37.2
[2020-03-24] MEDS ORDERED: Levofloxacin 500 mg/D5W 100 ml Premix Bag ONE (10:41)
[2020-03-24] MEDS ORDERED: Vancomycin 1 GM/200 ML BAG ONE (10:41)
[2020-03-24] MEDS ORDERED: Insulin Regular 300 UNITS/3 ML VIAL ONE (11:28)
[2020-03-24] MEDS ORDERED: Fentanyl 100 MCG/2 ML VIAL ONE (12:37)
[2020-03-24] MEDS ORDERED: Midazolam HCl 2 mg/2 ml Vial ONE (12:37)
[2020-03-24] MEDS ORDERED: Rocuronium Bromide 10 MG/ML (10ML VIAL) ONE (13:03)
[2020-03-24] MEDS ORDERED: Lidocaine 1% PF 5 ML VIAL ONE (13:03)
[2020-03-24] MEDS ORDERED: EPHEDRINE 25 MG/5 ML SYRINGE ONE (13:03)
[2020-03-24] MEDS ORDERED: Dexamethasone 20 MG/5 ML VIAL ONE (13:03)
[2020-03-24] MEDS ORDERED: Glycopyrrolate 0.2 MG/ML 5 ML SYRINGE ONE (13:03)
[2020-03-24] MEDS ORDERED: PHENYLEPHRINE-NS 100 MCG/ML 10 ML SYRINGE ONE (13:03)
[2020-03-24] MEDS ORDERED: Ondansetron PF 4 MG/2 ML Vial ONE (13:03)
[2020-03-24] MEDS ORDERED: PROPOFOL 200 MG/20 ML VIAL ONE (13:03)
[2020-03-24] MEDS ORDERED: Promethazine HCl 25 MG/ML VIAL SLOW IVP PRN (14:56)
[2020-03-24] MEDS ORDERED: Promethazine HCl 25 MG/ML VIAL IM PRN (14:56)
[2020-03-24] MEDS ORDERED: Ondansetron HCl/PF 4 MG/2 ML Vial IVP PRN (14:56)
[2020-03-24] MEDS ORDERED: Acetaminophen 500 MG TAB PO PRN (15:32)
[2020-03-24] MEDS ORDERED: hydrOXYzine 25 MG TAB PO PRN (15:36)
[2020-03-24] MEDS ORDERED: Diazepam 5 MG TAB PO PRN (15:36)
[2020-03-24] MEDS ORDERED: Acetaminophen/Codeine 30-300mg Tablet PO PRN (15:40)
[2020-03-24] MEDS ORDERED: B & O PR PRN (15:41)
[2020-03-24] MEDS ORDERED: traMADol HCl 50 MG TAB PO PRN (15:41)
[2020-03-24] MEDS ORDERED: B & O ONE (15:47)
[2020-03-24] MEDS ORDERED: [UNRECOGNIZED DRUG - OTHER] SC SCH (17:00)
[2020-03-24] MEDS: D5 1/2 NS w/20 mEq KCL 1,000 ML IV SCH (18:03)
[2020-03-24] MEDS ORDERED: Acetaminophen 650 MG Suppository PR PRN (19:26)
[2020-03-24] MEDS ORDERED: Acetaminophen 325 MG TAB PO PRN (19:26)
[2020-03-24] MEDS ORDERED: Dextrose 5% in Water 1,000 ML IV PRN (19:28)
[2020-03-24] MEDS ORDERED: Dextrose 50% Abboject 50 ML SYRINGE SLOW IVP PRN (19:28)
[2020-03-24] MEDS ORDERED: HumaLOG 300 UNITS/3 ML VIAL SC PRN (19:28)
[2020-03-24] MEDS: Famotidine 20 MG TAB PO SCH (19:57)
[2020-03-24] MEDS: Pregabalin 75 MG CAP PO SCH (19:58)
[2020-03-24] MEDS: risperiDONE 1 MG TAB PO SCH (19:59)
[2020-03-24] MEDS: Atorvastatin Calcium 40 MG TAB PO SCH (19:59)
[2020-03-24] MEDS: Escitalopram Oxalate 20 mg Tablet PO SCH (20:00)
[2020-03-24] MEDS: Docusate 100 MG CAP PO SCH (20:00)
[2020-03-24 20:11] LABS: #Eosinphils 0.1 thou/uL (0.0-0.7); #Lymphocytes 0.7 thou/uL (1.20-3.40); #Monocytes 0.2 thou/uL (0.11-0.59); #Neutrophils 13.5 thou/uL (1.40-6.50); %Basophils 0.1 % (0.0-1.0); %Eosinophils 0.4 % (0.0-10.0); %Lymphocytes 4.6 % (21.0-51.0); %Monocytes 1.5 % (0.0-10.0); %Neutrophils 93.4 % (42.0-75.0); Hemoglobin 14.2 g/dL (14.0-18.0); Mean Corpuscular HGB CONC 32.3 g/dL (32.0-36.0); Mean Corpuscular Hemoglobin 29.4 pg (27.0-31.0); Mean Corpuscular Volume 91.3 fL (78.0-98.0); Mean Platelet Volume 9.4 fL (7.4-10.4); Platelet Count 169 thou/uL (130-400); RBC Distribution Width 13.3 % (11.5-14.5); Red Blood Cell (RBC) Count 4.82 mill/uL (4.70-6.10); White Blood Cell (WBC) Count 14.4 thou/uL (4.8-10.8)
[2020-03-24 20:26] LABS: ALT (SGPT) 15 U/L (8-55); AST (SGOT) 17 U/L (5-34); Albumin 3.7 g/dL (3.4-4.8); Alkaline Phosphatase 158 U/L (40-110); Anion Gap 17 mmol/L (10-20); BUN (Urea Nitrogen) 44 mg/dL (8.4-25.7); Bilirubin, Total 0.4 mg/dL (0.2-1.2); Calc. Creatinine Clearance 51 mL/min (70-130); Calcium 8.9 mg/dL (7.8-10.44); Carbon Dioxide 19 mmol/L (23-31); Chloride 102 mmol/L (98-107); Estimated GFR-MDRD 23; Globulin 2.4 g/dL (2.4-3.5); Glucose 351 mg/dL (80-115); Potassium 4.9 mmol/L (3.5-5.1); Protein, Total 6.1 g/dL (5.8-8.1); Sodium 133 mmol/L (136-145)
--- NOTE | 2020-03-24 20:35 | CON ---
DATE OF CONSULTATION: 03/24/2020 TIME OF ASSESSMENT: 1800 hours. REFERRING PHYSICIAN: Dr. Mariscal REASON FOR CONSULTATION: Medical management. HISTORY OF PRESENT ILLNESS: Mr. Jain is a pleasant 64-year-old gentleman, who is status post a TURP with multiple comorbidities and has been referred for medical management. The patient had the procedure done earlier today and reports feeling a "raw sensation" due to the TURP, but otherwise is without any complaints. He has had dinner just now and denies having any nausea or vomiting. No abdominal pain. Denies having any chest pain, palpitations, or shortness of breath. Has been up and walking around and denies having any lightheadedness or shortness of breath. The patient feels very well overall and is without any complaints. He has a Collins catheter in place with some hematuria. Denies any suprapubic discomfort. All other review of systems is negative. ALLERGIES: 1. CEFACLOR. 2. QUETIAPINE. HOME MEDICATIONS: 1. Tylenol No. 3. 2. Aspirin. 3. Clopidogrel. 4. Nitrofurantoin. 5. Tramadol. 6. Acarbose. 7. Atorvastatin. 8. Clonidine. 9. Diazepam. 10. Escitalopram. 11. Furosemide. 12. Glucagon. 13. Hydroxyzine. 14. Isosorbide. 15. Lisinopril. 16. Pregabalin. 17. Risperidone. 18. Insulin. 19. Trazodone. PAST MEDICAL HISTORY: 1. CKD, stage 3. 2. History of prostate cancer. 3. History of DVT. 4. CHF. 5. History of CO. 6. CAD. 7. GERD. 8. Hypertension. 9. Diabetes mellitus. 10. Chronic atrial fibrillation. 11. Obesity. PAST SURGICAL HISTORY: 1. Multiple cardiac ablations until pacemaker placed in 2017. This was done for persistent atrial fibrillation. 2. Knee surgery. 3. Ulnar nerve transposition. 4. Vasectomy. 5. Coronary stent placement. 6. Implantable loop recorder. 7. Bilateral shoulder surgery. 8. Status post TURP. 9. CABG. FAMILY HISTORY: 1. On his mother's side, he has a history of coronary artery disease, CO, hyperlipidemia, and hypertension. 2. Father side with history of coronary artery disease, hyperlipidemia, CO, hypertension, and stroke. 3. Paternal grandmother had CAD and an CO. 4. Paternal grandfather had CAD and an CO. SOCIAL HISTORY: The patient denies any tobacco use, heavy alcohol consumption, or illicit drug use. PHYSICAL EXAMINATION: GENERAL: The patient appears well developed, well nourished, is in no acute distress. VITAL SIGNS: Temperature 99.3, pulse 73, respirations 19, O2 saturation 94% on room air, blood pressure 158/79. HEENT: Normocephalic and atraumatic. Pupils are equal, round, and reactive to light. Sclerae without icterus. Oropharynx is clear. NECK: Supple. LUNGS: Clear to auscultation bilaterally without wheezes, rales, or rhonchi. CARDIAC: Regular rate and rhythm. ABDOMEN: Soft, obese, nontender, nondistended. Normoactive bowel sounds present. No guarding or rigidity. No renal angle tenderness. No suprapubic discomfort. A Collins catheter in place with blood-tinged urine, which can be expected given procedure done today. EXTREMITIES: No lower leg swelling or edema. Mechanical SCDs in place. SKIN: Warm and dry. IMPRESSION AND PLAN: Mr. Jain is a very pleasant 64-year-old gentleman, who is status post a TURP done by Dr. Mariscal today, being admitted, and the patient referred for management of multiple comorbidities including the following; 1. Hypertension. His home medications have already been reconciled. We will monitor blood pressure. 2. Chronic atrial fibrillation. The patient with a pacemaker in place. Had an EKG done prior to surgery, which showed a paced rhythm, heart rate of 65. His Plavix and aspirin are currently on hold, given recent procedure. 3. Diabetes mellitus. Home medications have been reconciled. I will change his diet to consistent carb diet. Insulin sliding scale initiated. We will monitor blood glucose. 4. Hyperlipidemia. Home medications reconciled. 5. Chronic kidney disease, stage 3. The patient on IV fluids as per Dr. Mariscal. We will check labs. Continue monitor renal function. 6. Gastroesophageal reflux disease. We will give famotidine 20 mg p.o. b.i.d. 7. Deep venous thrombosis prophylaxis. The patient with mechanical SCDs in place. 8. Insomnia. Trazodone is what the patient takes at home and this has already been reconciled. Case discussed with Dr. Malhotra, who agrees with plan of care as described above. Job ID: [id number] MTDD
[2020-03-24] MEDS: traZODone HCl 50 MG TAB PO SCH (21:49)
[2020-03-24] MEDS: HumaLOG 300 UNITS/3 ML VIAL SC PRN (21:49)
--- NOTE | 2020-03-24 22:26 | OP ---
DATE OF PROCEDURE: 03/24/2020 PREOPERATIVE DIAGNOSIS: Retention. POSTOPERATIVE DIAGNOSIS: Retention. PROCEDURES PERFORMED: Cysto, transurethral resection of the prostate. ANESTHESIA: General. ESTIMATED BLOOD LOSS: 200 mL. FINDINGS: He had no stricture disease. He had a large trilobar BPH, 2+ trabeculation. No bladder tumor, foreign body, or stone. Two ureteral orifices passed under prostatic chips. DRAINS PLACED: A 22-Maltese three-way 30 mL balloon with a 60 mL and it hooked up to continuous bladder irrigation. TISSUE SENT: Prostatic chips. INDICATIONS FOR SURGERY: This is a 64-year-old man, who is found to have a liter of urine in his bladder, renal insufficiency. Workup showed a CMG consistent with bladder outlet obstruction. He also has a history of prostate cancer on active surveillance. He has not been deemed a surgical candidate for this when he was seen a couple of years ago for consideration of robotic prostatectomy. DESCRIPTION OF PROCEDURE: After obtaining written and verbal consent from the patient after receiving IV antibiotics, he was taken to the operating suite. He was placed in the supine position on the treatment table. PlexiPulses were placed on his lower extremities and turned on. He was given a general anesthetic and oral obturator intubation. He was placed in the dorsal lithotomy position carefully, and then his Collins catheter was removed, and he was sterilely prepped and draped. Cystoscopy was performed with a 22-Maltese sheath. This was well lubricated and placed under direct vision through the male urethra and into the urinary bladder with aid of a 30-degree lens of video camera and monitor. The bladder was examined with both the 30 and the 70-degree lens. The instruments were then removed and a visual obturator 24-Maltese was brought in and passed through the male urethra into the bladder with a 30-degree lens. An [employer] resectoscope with a gyrus cutting loop and Gyrus generator as well as 30-degree lens and video camera and monitor were used. We initially took down the median lobe from roughly 4 o'clock to 8 o'clock resecting it off the bladder neck and then we took the floor down from about 7 o'clock to 5 o'clock from bladder neck to just proximal of verumontanum resecting back to capsular fibers. The left lobe was taken down from 1 o'clock to 5 o'clock, the right lobe from 11 o'clock to 7 o'clock. Apical tissue was resected and halfly bites. A very large prostate Ellik'd out a few times during the case because of the number of chips. We also re-lubricated the resectoscope sheath numerous times. Once the resection was done, we Ellik'd out all chips and clots and suspected the bladder. Bladder neck and trigone were all fine. There were no chips or clots in the bladder. We used electrocautery unit to obtain hemostasis. Collins catheter was then placed with the aid of a catheter guide, about 60 mL placed in the balloon, it was hand irrigated, it was clear to very faint pink. It was hooked up to continuous bladder irrigation and placed on gentle traction on his right thigh with a Velcro leg strap. He was then taken out of the dorsal lithotomy position, awakened, extubated, and taken by stretcher to recovery room. Job ID: [id number]
[2020-03-25] MEDS: D5 1/2 NS w/20 mEq KCL 1,000 ML IV SCH (05:32)
[2020-03-25 06:09] LABS: #Lymphocytes 0.8 thou/uL (1.20-3.40); #Monocytes 0.6 thou/uL (0.11-0.59); #Neutrophils 9.3 thou/uL (1.40-6.50); %Basophils 0.2 % (0.0-1.0); %Eosinophils 0.3 % (0.0-10.0); %Lymphocytes 7.1 % (21.0-51.0); %Monocytes 5.9 % (0.0-10.0); %Neutrophils 86.6 % (42.0-75.0); Hemoglobin 13.1 g/dL (14.0-18.0); Mean Corpuscular HGB CONC 32.9 g/dL (32.0-36.0); Mean Corpuscular Hemoglobin 30.7 pg (27.0-31.0); Mean Corpuscular Volume 93.5 fL (78.0-98.0); Mean Platelet Volume 9.2 fL (7.4-10.4); Platelet Count 246 thou/uL (130-400); RBC Distribution Width 13.6 % (11.5-14.5); Red Blood Cell (RBC) Count 4.26 mill/uL (4.70-6.10); White Blood Cell (WBC) Count 10.7 thou/uL (4.8-10.8)
[2020-03-25 06:17] LABS: Anion Gap 18 mmol/L (10-20); BUN (Urea Nitrogen) 48 mg/dL (8.4-25.7); Calc. Creatinine Clearance 47 mL/min (70-130); Calcium 8.4 mg/dL (7.8-10.44); Carbon Dioxide 20 mmol/L (23-31); Chloride 98 mmol/L (98-107); Estimated GFR-MDRD 21; Potassium 5.8 mmol/L (3.5-5.1); Sodium 130 mmol/L (136-145)
[2020-03-25 06:20] LABS: Glucose 599 mg/dL (80-115)
[2020-03-25] MEDS ORDERED: HumaLOG 300 UNITS/3 ML VIAL SC SCH (06:45)
[2020-03-25] MEDS: Pregabalin 50 MG CAP PO SCH (08:37)
[2020-03-25] MEDS: risperiDONE 1 MG TAB PO SCH ×2 (08:38→20:31)
[2020-03-25] MEDS: Isosorbide Mononitrate (ER) 30 MG TAB PO SCH (08:38)
[2020-03-25] MEDS: Docusate 100 MG CAP PO SCH ×2 (08:38→20:31)
[2020-03-25] MEDS: Famotidine 20 MG TAB PO SCH ×2 (08:38→20:31)
[2020-03-25] MEDS: Furosemide 20 MG TAB PO SCH (08:39)
[2020-03-25] MEDS ORDERED: Insulin Glargine 50 UNITS in Pre-Filled Syringe 1 EACH SC SCH ×4 (09:00→22:00)
[2020-03-25] MEDS ORDERED: Lisinopril 20 MG TAB PO SCH (09:00)
[2020-03-25] MEDS ORDERED: hydrALAZINE 20 MG/ML VIAL SLOW IVP PRN (09:42)
[2020-03-25] MEDS: Sodium Chloride 0.9% 1,000 ML IV SCH ×2 (10:42→22:32)
[2020-03-25] MEDS: Insulin Regular 300 UNITS/3 ML VIAL SC PRN (14:05)
[2020-03-25 14:53] LABS: Anion Gap 12 mmol/L (10-20); BUN (Urea Nitrogen) 47 mg/dL (8.4-25.7); Calc. Creatinine Clearance 46 mL/min (70-130); Carbon Dioxide 25 mmol/L (23-31); Chloride 101 mmol/L (98-107); Estimated GFR-MDRD 21; Glucose 518 mg/dL (80-115); Potassium 4.9 mmol/L (3.5-5.1); Sodium 133 mmol/L (136-145)
--- NOTE | 2020-03-25 17:18 | PDOC.HOSPP ---
- Subjective Encounter Date: 03/25/20 Encounter Time: 16:30 Subjective: Patient seen and examined for med mngt. Pain controlled. No CP/SOB/ Palpitations. No new complaints. No overnight events - Objective Vital Signs & Weight: Vital Signs (12 hours) Temp Pulse Resp BP Pulse Ox 03/25/20 08:24 98.6 F 63 18 139/76 98 Weight Weight 290 lb I&O: 03/24/20 03/25/20 03/26/20 06:59 06:59 06:59 Intake Total 315 3210 Output Total 3480 2530 Balance -3165 680 Result Diagrams: 03/25/20 05:33 03/25/20 14:16 Additional Labs: Accuchecks 03/25/20 03/25/20 03/25/20 16:10 11:06 06:29 POC Glucose 464 H 479 H 503 H 03/25/20 03/24/20 05:25 20:11 POC Glucose 485 H 333 H Laboratory Tests 03/25/20 05:33 Sodium 130 L Potassium 5.8 H Hospitalist ROS - Review of Systems Respiratory: denies: cough, dry, shortness of breath, hemoptysis, SOB with excertion, pleuritic pain, sputum, wheezing, other Cardiovascular: denies: chest pain, palpitations, orthopnea, paroxysmal noc. dyspnea, edema, light headedness, other - Medication Medications: Active Medications Generic Name Dose Route Start Last Admin Trade Name Freq PRN Reason Stop Dose Admin Acarbose 25 mg 03/24/20 17:00 03/25/20 16:19 Precose PO 25 mg TID-WM AMAYA Administration Atorvastatin Calcium 40 mg 03/24/20 21:00 03/24/20 19:59 Lipitor PO 40 mg HS AMAYA Administration Docusate Sodium 100 mg 03/24/20 21:00 03/25/20 08:38 Colace PO 100 mg BID AMAYA Administration Escitalopram Oxalate 20 mg 03/24/20 21:00 03/24/20 20:00 Lexapro PO 20 mg HS AMAYA Administration Famotidine 20 mg 03/24/20 21:00 03/25/20 08:38 Pepcid PO 20 mg BID AMAYA Administration Furosemide 20 mg 03/25/20 09:00 03/25/20 08:39 Lasix PO 20 mg QAM AMAYA Administration Sodium Chloride 1,000 mls @ 75 mls/hr 03/25/20 09:00 03/25/20 10:42 Normal Saline 0.9% IV 1,000 mls .[id number] AMAYA Administration Insulin Human Lispro 0 units 03/24/20 19:28 03/24/20 21:49 Humalog SC 4 unit .BEDTIME SLIDING SC PRN Administration Bedtime Correctional Scale Insulin Human Regular 0 units 03/25/20 08:54 03/25/20 14:05 Humulin R SC 13 unit .AGGRESSIVE SLIDING PRN Administration Aggressive Correctional Scale Isosorbide Mononitrate 30 mg 03/25/20 09:00 03/25/20 08:38 Imdur Er PO 30 mg QAM AMAYA Administration Pregabalin 100 mg 03/25/20 09:00 03/25/20 08:37 Lyrica PO 100 mg QAM AMAYA Administration Pregabalin 300 mg 03/24/20 21:00 03/24/20 19:58 Lyrica PO 300 mg HS AMAYA Administration Risperidone 0.5 mg 03/24/20 21:00 03/25/20 08:38 Risperidone PO 0.5 mg BID AMAYA Administration Tramadol HCl 100 mg 03/24/20 15:41 03/24/20 18:17 Ultram PO 100 mg Q6H PRN Administration post op pain Trazodone HCl 100 mg 03/24/20 21:00 03/24/20 21:49 Desyrel PO 100 mg HS AMAYA Administration - Exam General Appearance: NAD Heart: RRR, no rubs Respiratory: no wheezes, no rales, no ronchi Gastrointestinal: soft, non-tender, normal bowel sounds Extremities: no cyanosis, no clubbing Neurological: no new deficit Hosp A/P - Plan DVT proph w/SCDs DM2 with hyperglycemia HTN Hyperkalemia Obesity BMI 37.2 CKD 4 Par Afib CAD s/p stent GERD HLD PLAN: U500 not in formulary Will start Lantus 50 units Q8hr Change sliding scale to aggressive Acuchecks ACHS and 0200 Hold Lisinopril due to hyperkalemia AM labs Cont other meds as above
[2020-03-25] MEDS: Pregabalin 75 MG CAP PO SCH (20:30)
[2020-03-25] MEDS: Atorvastatin Calcium 40 MG TAB PO SCH (20:30)
[2020-03-25] MEDS: Escitalopram Oxalate 20 mg Tablet PO SCH (20:31)
[2020-03-25] MEDS: Cipro 250 MG TAB PO SCH (20:31)
[2020-03-25] MEDS: Insulin Glargine 50 UNITS in Pre-Filled Syringe 1 EACH SC SCH (20:41)
[2020-03-25] MEDS: traZODone HCl 50 MG TAB PO SCH (21:47)
[2020-03-25] MEDS: cloNIDine 0.1 MG TAB PO PRN (23:09)
[2020-03-26] MEDS: HumaLOG 300 UNITS/3 ML VIAL SC PRN (02:34)
[2020-03-26] MEDS: Cipro 250 MG TAB PO SCH (05:35)
[2020-03-26] MEDS: Insulin Regular 300 UNITS/3 ML VIAL SC PRN (05:35)
[2020-03-26 06:16] LABS: #Eosinphils 0.3 thou/uL (0.0-0.7); #Lymphocytes 1.6 thou/uL (1.20-3.40); #Monocytes 0.7 thou/uL (0.11-0.59); #Neutrophils 4.8 thou/uL (1.40-6.50); %Basophils 0.6 % (0.0-1.0); %Eosinophils 4.4 % (0.0-10.0); %Lymphocytes 21.1 % (21.0-51.0); %Monocytes 8.8 % (0.0-10.0); %Neutrophils 65.2 % (42.0-75.0); Hemoglobin 12.9 g/dL (14.0-18.0); Mean Corpuscular HGB CONC 33.9 g/dL (32.0-36.0); Mean Corpuscular Hemoglobin 30.6 pg (27.0-31.0); Mean Corpuscular Volume 90.3 fL (78.0-98.0); Mean Platelet Volume 9.2 fL (7.4-10.4); Platelet Count 228 thou/uL (130-400); RBC Distribution Width 13.3 % (11.5-14.5); White Blood Cell (WBC) Count 7.4 thou/uL (4.8-10.8)
[2020-03-26 06:33] LABS: Anion Gap 12 mmol/L (10-20); BUN (Urea Nitrogen) 47 mg/dL (8.4-25.7); Calc. Creatinine Clearance 56 mL/min (70-130); Carbon Dioxide 27 mmol/L (23-31); Chloride 107 mmol/L (98-107); Estimated GFR-MDRD 26; Glucose 197 mg/dL (80-115); Potassium 3.9 mmol/L (3.5-5.1); Sodium 142 mmol/L (136-145)
[2020-03-26] MEDS ORDERED: Insulin Glargine 50 UNITS in Pre-Filled Syringe 1 EACH SC SCH (09:00)
[2020-03-26] MEDS ORDERED: Saccharomyces boulardii 250 MG CAP PO SCH (09:00)
[2020-03-26] MEDS: cloNIDine 0.1 MG TAB PO PRN (09:04)
[2020-03-26] MEDS: risperiDONE 1 MG TAB PO SCH (09:07)
[2020-03-26] MEDS: Docusate 100 MG CAP PO SCH (09:07)
[2020-03-26] MEDS: HumaLOG 300 UNITS/3 ML VIAL SC SCH ×2 (09:07→13:42)
[2020-03-26] MEDS: Isosorbide Mononitrate (ER) 30 MG TAB PO SCH (09:07)
[2020-03-26] MEDS: Furosemide 20 MG TAB PO SCH (09:09)
[2020-03-26] MEDS: Pregabalin 50 MG CAP PO SCH (09:09)
[2020-03-26] MEDS: Famotidine 20 MG TAB PO SCH (09:09)
[2020-03-26] MEDS: Insulin Glargine 50 UNITS in Pre-Filled Syringe 1 EACH SC SCH (09:11)
[2020-03-26] MEDS: Sodium Chloride 0.9% 1,000 ML IV SCH (11:22)
--- NOTE | 2020-03-26 11:29 | PDOC.HOSPP ---
- Subjective Encounter Date: 03/26/20 Encounter Time: 10:00 Subjective: Patient seen and examined for med mngt. No CP/SOB. No new complaints. No overnight events - Objective Vital Signs & Weight: Vital Signs (12 hours) Temp Pulse Resp BP BP BP Pulse Ox 03/26/20 10:33 98.0 F 62 18 152/81 H 97 03/26/20 09:04 184/97 H 03/26/20 07:47 98.0 F 59 L 18 192/90 H 98 03/26/20 03:37 97.8 F 58 L 18 154/73 H 93 L Weight Weight 290 lb I&O: 03/25/20 03/26/20 03/27/20 06:59 06:59 06:59 Intake Total 315 9130 Output Total 3480 15720 Balance -0713 -7175 Result Diagrams: 03/26/20 05:53 03/26/20 05:53 Additional Labs: Accuchecks 03/26/20 03/26/20 03/26/20 10:39 05:38 02:17 POC Glucose 207 H 193 H 300 H 03/25/20 03/25/20 20:42 16:10 POC Glucose 435 H 464 H Hospitalist ROS - Review of Systems Respiratory: denies: cough, dry, shortness of breath, hemoptysis, SOB with excertion, pleuritic pain, sputum, wheezing, other Cardiovascular: denies: chest pain, palpitations, orthopnea, paroxysmal noc. dyspnea, edema, light headedness, other - Medication Medications: Active Medications Generic Name Dose Route Start Last Admin Trade Name Freq PRN Reason Stop Dose Admin Acarbose 25 mg 03/24/20 17:00 03/26/20 09:05 Precose PO 25 mg TID-WM AMAYA Administration Atorvastatin Calcium 40 mg 03/24/20 21:00 03/25/20 20:30 Lipitor PO 40 mg HS AMAYA Administration Ciprofloxacin 250 mg 03/25/20 20:00 03/26/20 05:35 Cipro PO 250 mg [id number] AMAYA Administration Clonidine 0.1 mg 03/24/20 15:36 03/26/20 09:04 Catapres PO 0.1 mg QID PRN Administration SBP >160 Docusate Sodium 100 mg 03/24/20 21:00 06/10/20 09:07 Colace PO 100 mg BID AMAYA Administration Escitalopram Oxalate 20 mg 03/24/20 21:00 03/25/20 20:31 Lexapro PO 20 mg HS AMAYA Administration Famotidine 20 mg 03/24/20 21:00 03/26/20 09:09 Pepcid PO 20 mg BID AMAYA Administration Furosemide 20 mg 03/25/20 09:00 03/26/20 09:09 Lasix PO 20 mg QAM AMAYA Administration Sodium Chloride 1,000 mls @ 75 mls/hr 03/25/20 09:00 03/26/20 11:22 Normal Saline 0.9% IV Not Given .[id number] AMAYA Insulin Glargine 50 units/ 0.5 mls @ 0 mls/hr 03/25/20 21:00 03/26/20 09:11 Miscellaneous Medication SC 0.5 mls BID AMAYA Administration Insulin Human Lispro 0 units 03/24/20 19:28 03/26/20 02:34 Humalog SC 3 unit .BEDTIME SLIDING SC PRN Administration Bedtime Correctional Scale Insulin Human Lispro 10 units 03/26/20 08:00 03/26/20 09:07 Humalog SC 10 unit TID-WM AMAYA Administration Insulin Human Regular 0 units 03/25/20 08:54 03/26/20 05:35 Humulin R SC 3 unit .AGGRESSIVE SLIDING PRN Administration Aggressive Correctional Scale Isosorbide Mononitrate 30 mg 03/25/20 09:00 03/26/20 09:07 Imdur Er PO 30 mg QAM AMYAA Administration Pregabalin 100 mg 03/25/20 09:00 03/26/20 09:09 Lyrica PO 100 mg QAM AMAYA Administration Pregabalin 300 mg 03/24/20 21:00 03/25/20 20:30 Lyrica PO 300 mg HS AMAYA Administration Risperidone 0.5 mg 03/24/20 21:00 03/26/20 09:07 Risperidone PO 0.5 mg BID AMAYA Administration Saccharomyces Boulardii 250 mg 03/26/20 09:00 03/26/20 09:07 Florastor PO 250 mg DAILY AMAYA Administration Sodium Chloride 10 ml 03/25/20 21:00 03/26/20 09:12 Flush - Normal Saline IVF 10 ml Q12HR AMAYA Administration Tramadol HCl 100 mg 03/24/20 15:41 03/24/20 18:17 Ultram PO 100 mg Q6H PRN Administration post op pain Trazodone HCl 100 mg 03/24/20 21:00 03/25/20 21:47 Desyrel PO 100 mg HS AMAYA Administration - Exam General Appearance: NAD Heart: RRR, no gallops Respiratory: no wheezes, no rales Gastrointestinal: non-tender, normal bowel sounds Extremities: no cyanosis, no clubbing Neurological: no new deficit Hosp A/P - Plan DVT proph w/SCDs DM2 with hyperglycemia HTN Hyperkalemia Obesity BMI 37.2 CKD 4 Par Afib CAD s/p stent GERD HLD PLAN: Cont Lantus 50 units BID Cont aggressive sliding scale with extra 10 units TID Cont Acuchecks ACHS Lisinopril on hold due to hyperkalemia Repeat BMP after 1 week - PCP to arrange/follow Cont other meds as above Will sign off. Please call if needed.
--- NOTE | 2020-03-26 11:44 | PQF ---
BETI MONROY MALIK MD [id number] SURG [id number] CLINICAL DOCUMENTATION IMPROVEMENT CLARIFICATION FORM: ICD-10 Updated PLEASE DO AN ADDENDUM TO THE PROGRESS NOTE WITH ANY DOCUMENTATION UPDATES OR ADDITIONS AND CARRY THROUGH TO DC SUMMARY. THANK YOU. DATE: 03/26/2020 ATTN: DR. Himanshu GONZALEZ Please exercise your independent, professional judgment in responding to the clarification form. Clinical indicators are provided on the bottom of this form for your review. Please check appropriate box(s): [ x ] Hyponatremia probably due to hyperglycemia [ ] Hyponatremia due to SIADH (Syndrome of Inappropriate Secretion of Antidiuretic Hormone) [ ] Other diagnosis [ ] Unable to determine In addition, please specify: Present on Admission (POA): [ x ] Yes [ ] No [ ] Unable to determine CLINICAL INDICATORS - SIGNS / SYMPTOMS / LABS / RESULTS AND LOCATION IN EMR 03/24 SODIUM 133 03/25 SODIUM 130 > 133 RISK: CHRONIC KIDNEY DISEASE STAGE 4 , DM W HYPERGLYCEMIA (PN/LADHA) 03/25 TREATMENT SERIAL ELECTROLYTE ( 03/24 - PRESENT) 0.9% SODIUM CHLORIDE ( 03/25 - PRESENT) THANK YOU! MUKUL (This form is maintained as a part of the permanent medical record) 2014 [employer] All Rights Reserved [email or web address] [email or web address]
[2020-03-26] MEDS ORDERED: HumaLOG 300 UNITS/3 ML VIAL SC SCH ×2 (12:00→17:00)
[2020-03-26] MEDS ORDERED: HumaLOG 300 UNITS/3 ML VIAL SC PRN (12:46)
[2020-03-26 15:21] VITALS: BP 121/76; TEMP 97.6
== END 2020-03-26 15:30 | disposition home or self-care (01) | DRG 713 ==
LOC: SDC 10:08 → SURG A 15:32
PROVIDERS: ADMIT Urology; ATTEND Urology
PROC: 0VT08ZZ Resection of Prostate, Via Natural or Artificial Opening Endoscopic (ICD-10-PCS; principal; 2020-03-24)
DX: N40.1 Benign prostatic hyperplasia with lower urinary tract symptoms (principal); I13.0 Hypertensive heart and chronic kidney disease with heart failure and stage 1 through stage 4 chronic kidney disease, or unspecified chronic kidney disease; E87.1 Hypo-osmolality and hyponatremia; N18.4 Chronic kidney disease, stage 4 (severe); Z11.59 Encounter for screening for other viral diseases; R33.8 Other retention of urine; E78.5 Hyperlipidemia, unspecified; I50.9 Heart failure, unspecified; G47.33 Obstructive sleep apnea (adult) (pediatric); M19.90 Unspecified osteoarthritis, unspecified site; F41.9 Anxiety disorder, unspecified; E11.22 Type 2 diabetes mellitus with diabetic chronic kidney disease; E11.65 Type 2 diabetes mellitus with hyperglycemia; I25.10 Atherosclerotic heart disease of native coronary artery without angina pectoris; I48.0 Paroxysmal atrial fibrillation; K21.9 Gastro-esophageal reflux disease without esophagitis; E66.9 Obesity, unspecified; E87.5 Hyperkalemia; Z88.8 Allergy status to other drugs, medicaments and biological substances; Z79.899 Other long term (current) drug therapy; I25.2 Old myocardial infarction; Z68.37 Body mass index [BMI] 37.0-37.9, adult
CPT/HCPCS: 36415; 36416; 80048; 80053; 83880; 85025; 88305; J1100; J1815; J1956; J2001; J2250; J2405; J2704; J3010; J3370; J3480